=== PATIENT | male | born 1980 | race Caucasian/White ===

== ENCOUNTER 2019-03-31 08:49 | Emergency (ER) | payer BC ==
[2019-03-31 09:06] VITALS: BP 122/74
--- NOTE | 2019-03-31 09:09 | UC ---
Respiratory Complaint HPI - HPI Summary HPI Summary: 38 y/o male presents to the urgent care c/o productive cough w/ green sputum for the past 3 weeks. Pt reports symptoms started w/ the common cold and then cough developed. Symptoms worsen w/ chills, [place], body aches, but no fever for the past 4 days. He developed increased wheezing and mild SOB at times for the past 2 days. Pt has been taking OTC medications to alleviate symptoms. His daughter was sick last week, but now she is better. Pt denies Hx of smoking. Pt denies dizziness, respiratory distress, chest pain, abdominal pain, N/V/d. - History of Current Complaint Chief Complaint: UCGeneralIllness Stated Complaint: RESP COMPLAINT Time Seen by Provider: 03/31/19 09:05 Hx Obtained From: Patient Onset/Duration: Gradual Onset, Lasting Weeks - 3 weeks, Still Present, Worse Since - 4 days Timing: Intermittent Episodes Severity Initially: Mild Severity Currently: Moderate Pain Intensity: 2 Pain Scale Used: 0-10 Numeric Character: Cough: Productive, Sputum Description: - green Aggravating Factors: Recumbent Position Alleviating Factors: OTC Meds Associated Signs And Symptoms: Positive: Chills, Wheezing - mild for the past 2 days, URI, Nasal Congestion, Sinus Discomfort. Negative: Dyspnea, Fever, Hemoptysis, Dizziness, Hoarseness - Risk Factors Pulmonary Embolism Risk Factors: Negative Cardiac Risk Factors: Negative Pseudomonas Risk Factors: Negative Tuberculosis Risk Factors: Negative - Allergies/Home Medications Allergies/Adverse Reactions: Allergies Allergy/AdvReac Type Severity Reaction Status Date / Time No Known Allergies Allergy Verified 03/31/19 09:02 PMH/Surg Hx/FS Hx/Imm Hx Previously Healthy: Yes - Pt denies PMHX - Surgical History Surgical History: None - Family History Known Family History: Positive: Hypertension - Social History Occupation: Employed Full-time Lives: With Family Alcohol Use: Occasionally Substance Use Type: None Smoking Status (MU): Never Smoked Tobacco Review of Systems All Other Systems Reviewed And Are Negative: Yes Constitutional: Positive: Chills, Other - body aches Skin: Positive: Negative Eyes: Positive: Negative ENT: Positive: Nasal Discharge - yellowish, Sinus Congestion, Other - PND. Negative: Sore Throat Respiratory: Positive: Cough - productive cough w/ green sputum, Other - mild wheezing Cardiovascular: Positive: Negative Gastrointestinal: Positive: Negative Genitourinary: Positive: Negative Motor: Positive: Negative Neurovascular: Positive: Negative Musculoskeletal: Positive: Myalgia Neurological: Positive: Headache Psychological: Positive: Negative Is Patient Immunocompromised?: No Physical Exam - Summary Physical Exam Summary: Vital Signs Reviewed: Yes General: well developed, well nourished male sitting in the examining table w/o any apparent distress Eyes: Positive: Conjunctiva Clear - PERRLA, EOMI, fundi grossly normal ENT: Positive: Normal ENT inspection, Hearing grossly normal, Pharynx normal, Nasal congestion - edematous and erythematous nasal mucosa, Nasal drainage - yellowish drainage, TMs normal. Negative: Tonsillar swelling, Tonsillar exudate Neck: Positive: Supple, Nontender, No Lymphadenopathy Respiratory: no orthopnea or dyspnea. Able to speak in full sentences, no retractions or accessory muscle use, no tripod position, stridor, or head bobbing. Positive breath sounds bilaterally. diffuse scattered wheezing and rhonchi on b/L lungs, no crackles or rales. Cardiovascular: Positive: RRR, No Murmur, Pulses Normal, Brisk Capillary Refill Abdomen Description: Positive: Nontender, No Organomegaly, Soft. Negative: CVA Tenderness (R), CVA Tenderness (L) Bowel Sounds: Positive: Present Musculoskeletal Exam: Normal Musculoskeletal: Positive: Strength Intact, ROM Intact, No Edema Neurological Exam: Normal Psychological Exam: Normal Skin Exam: Normal Triage Information Reviewed: Yes Vital Signs: Initial Vital Signs Temp 98.4 F 03/31/19 09:03 Pulse 68 03/31/19 09:03 Resp 16 03/31/19 09:03 BP 122/74 03/31/19 09:03 Pulse Ox 99 03/31/19 09:03 Respiratory Course/Dx - Course Course Of Treatment: 38 y/o male presents to the urgent care c/o productive cough w/ green sputum for the past 3 weeks. Pt reports symptoms started w/ the common cold and then cough developed. Symptoms worsen w/ chills, [place], body aches, but no fever for the past 4 days. He developed increased wheezing and mild SOB at times for the past 2 days. Pt has been taking OTC medications to alleviate symptoms. His daughter was sick last week, but now she is better. Pt denies Hx of smoking. Pt denies dizziness, respiratory distress, chest pain, abdominal pain, N/V/d. Hx obtained. Pt w/ B/L posterior upper lungs w/ mild wheezing and rhonchi. O2Sat: 99%. Rapid influenza A&b: negative. Pt given at the clinic Albuterol neb treatment by the nurse. Pt tolerated well treatment and b/L lungs cleared. Chest X-ray Ordered to r/o pneumonia. Impression: Stigmata of obstructive lung disease. No acute pulmonary or cardiac process evident. Pt has been w/ productive cough x 1 months w/o any improvement. Pt will Tx with Z-uyen for bronchitis and also Rx Albuterol inhaler PO to alleviate cough and wheezing. D/ C instructions explained. Pt understood and agreed w/ plan of care . Pt left the clinic ambulating and feeling better. - Differential Dx/Diagnosis Differential Diagnosis/HQI/PQRI: Asthma, Bronchitis, Influenza, Laryngitis, Lower Resp Infection, Other - pneumonia Provider Diagnosis: Acute bronchitis, Wheezing Discharge ED - Sign-Out/Discharge Documenting (check all that apply): Patient Departure - d/c home All imaging exams completed and their final reports reviewed: Yes - Discharge Plan Condition: Stable Disposition: HOME Prescriptions: Albuterol HFA INHALER* [Ventolin HFA Inhaler*] 1 - 2 puff INH Q6H PRN #1 mdi PRN Reason: wheezing/bronchospasm Azithromyxin UYEN (NF) [Z-Uyen (Zithromax) 250 mg tabs #6] 2 tab PO .TODAY, THEN 1 DAILY #6 tab Patient Education Materials: Acute Bronchitis (ED) Referrals: [facility] [Outside] - 3 Days Additional Instructions: 1-Please take full course of antibiotic to avoid resistance. take yogurts w/ probiotics of culturelle to protect your GI system 2-Take Mucinex PO tabs as directed and use the albuterol inhaler to alleviate cough and wheezing. Increase fluid intake, rest and eat well. 3- If symptoms do not improve or worsen or your develop SOB with fever and severe wheezing please go immediately to the ER further evaluation and treatment. 4- F/u with your PCP in 3 days if not improvement of symptoms for further management - Billing Disposition and Condition Condition: STABLE Disposition: Home
[2019-03-31] MEDS ORDERED: Albuterol/Ipratropium NEB.SOL* Albuterol 2.5 MG/Ipratropium 0.5 MG 3 ML INH ONE (09:18)
[2019-03-31 09:34] LABS: Influenza A Molecular Negative (Negative); Influenza B Molecular Negative (Negative)
== END 2019-03-31 10:12 | disposition home or self-care (01) ==
LOC: UCEAST 08:49
DX: J20.9 Acute bronchitis, unspecified (principal); R06.2 Wheezing; M79.10 Myalgia, unspecified site; R51 Headache
CPT/HCPCS: 71046; 99212; A9270-GY; G0463